=== PATIENT | female | born 1990 ===

== ENCOUNTER → 2017-07-29 | Outpatient (REF) | LOC: WSOH 09:11 | DX: Z02.89 Encounter for other administrative examinations (principal) ==

== ENCOUNTER → 2017-07-29 | Outpatient (REF) | LOC: WSOH 08:59 | DX: Z02.89 Encounter for other administrative examinations (principal) ==

== ENCOUNTER → 2017-07-31 | Outpatient (REF) | LOC: WSOH 10:05 | DX: Z02.89 Encounter for other administrative examinations (principal) ==

== ENCOUNTER → 2017-07-31 | Outpatient (REF) | LOC: WSOH 11:53 | DX: Z02.89 Encounter for other administrative examinations (principal) ==

== ENCOUNTER → 2017-08-10 | Outpatient (REF) | LOC: WSOH 12:15 | DX: Z02.89 Encounter for other administrative examinations (principal) ==